=== PATIENT | male | born 1975 | race Asian ===

== ENCOUNTER 2020-01-31 17:51 | Emergency (ER) | payer OTHER ==
[~2020-01-31] VITALS: Ht 165.1 cm; Wt 104.3 kg
[2020-01-31 18:03] VITALS: Ht 165.1 cm; Wt 104.3 kg
[2020-01-31 20:08] VITALS: BP 140/79
== END 2020-01-31 20:08 | disposition home or self-care (01) ==
LOC: ED 17:51
DX: S86.912A Strain of unspecified muscle(s) and tendon(s) at lower leg level, left leg, initial encounter (principal); S86.911A Strain of unspecified muscle(s) and tendon(s) at lower leg level, right leg, initial encounter; S29.012A Strain of muscle and tendon of back wall of thorax, initial encounter; S20.312A Abrasion of left front wall of thorax, initial encounter; W18.30XA Fall on same level, unspecified, initial encounter; Y93.89 Activity, other specified; Y92.89 Other specified places as the place of occurrence of the external cause; Y99.8 Other external cause status
CPT/HCPCS: 72072